=== PATIENT | male | born 1960 | race Caucasian/White ===

== ENCOUNTER 2021-03-26 01:48 | Inpatient (IN) | payer MEDICAID ==
[~2021-03-26] VITALS: Ht 177.8 cm; Wt 88.5 kg
[2021-03-26] MEDS ORDERED: ONDANSETRON 4 MG/2 ML VIAL IV ONE ×2 (02:15→04:30)
[2021-03-26] MEDS ORDERED: IV NORMAL SALINE 1000 ML BAG IV ONE (02:15)
[2021-03-26] MEDS ORDERED: HYDROMORPHONE 1 MG/1 ML DISP.SYRIN IV ONE ×2 (02:15→06:00)
[2021-03-26] MEDS ORDERED: PANTOPRAZOLE SODIUM 40 MG VIAL IV ONE (02:15)
[2021-03-26] MEDS ORDERED: PANTOPRAZOLE SODIUM 40 MG VIAL ONE (02:52)
[2021-03-26] MEDS ORDERED: HYDROMORPHONE 1 MG/1 ML DISP.SYRIN ONE ×2 (02:52→06:18)
[2021-03-26] MEDS ORDERED: ONDANSETRON 4 MG/2 ML VIAL ONE ×2 (02:52→04:38)
[2021-03-26 03:20] LABS: HEMATOCRIT 29.2 % (36.7-47.1); MEAN CORPUSCULAR HEMOGLOBIN 16.4 uug (23.8-33.4); MEAN CORPUSCULAR VOLUME 55.8 fL (73.0-96.2); PLATELET COUNT (AUTO) 753 K/uL (152-348)
[2021-03-26] MEDS ORDERED: SWABABLE VALVE TRANSFER SET EA MC ONE (03:34)
[2021-03-26] MEDS ORDERED: IOHEXOL 300MG/ML 100 ML INFUS..BTL ONE (03:34)
[2021-03-26] MEDS ORDERED: IV NORMAL SALINE 250 ML IV ONE (03:34)
[2021-03-26 04:02] LABS: CREATININE 0.9 mg/dL (0.6-1.3); POTASSIUM 3.1 mmol/L (3.5-5.1)
[2021-03-26 04:09] LABS: BILIRUBIN,DIRECT 0.1 mg/dL (0.0-0.2); BILIRUBIN,TOTAL 0.6 mg/dL (0.2-1.0); TOTAL PROTEIN, SERUM 8.1 g/dL (6.4-8.2)
--- NOTE | 2021-03-26 04:10 | NUR ---
Pt to CT
--- NOTE | 2021-03-26 04:30 | NUR ---
Pt back from CT
--- NOTE | 2021-03-26 05:20 | NUR ---
Called [facility] to page Dr. Leger.
--- NOTE | 2021-03-26 05:24 | NUR ---
Dr. Raza on Panel call with Dr. Leger
--- NOTE | 2021-03-26 05:27 | NUR ---
Called [facility] for reading of CT abdomen/pelvis
[2021-03-26 05:28] LABS: *BILIRUBIN,URIN NEGATIVE (NEGATIVE); *CLARITY,URINE CLEAR (CLEAR); *COLOR,URINE YELLOW (YELLOW); *KETONES,URINE TRACE (NEGATIVE); *UROBILINOGEN,URINE 0.2 E.U./dl (NORMAL); LEUKOCYTE ESTERASE ,URINE NEGATIVE (NEGATIVE); NITRITE, URINE NEGATIVE (NEGATIVE); PH,URINE 5.5 (5.0-8.0); UGLUCOSE NEGATIVE (NEGATIVE)
[2021-03-26] MEDS ORDERED: IV NS 1000 ML 1,000 ML IV SCH (05:30)
[2021-03-26] MEDS ORDERED: ACETAMINOPHEN 325 MG TABLET PO PRN (05:30)
[2021-03-26] MEDS ORDERED: LABETALOL HCL 100 MG/20 ML VIAL IV PRN (05:30)
[2021-03-26] MEDS ORDERED: hydrALAZINE HCL 20 MG/1 ML VIAL IV PRN (05:30)
--- NOTE | 2021-03-26 05:36 | NUR ---
Dr Raza spoke to Dr Hutchison for GI consult.
--- NOTE | 2021-03-26 05:39 | NUR ---
Dr. Raza talking to Dr. Van for GI consult
--- NOTE | 2021-03-26 05:43 | NUR ---
Dr Hutchison into eval patient.
[2021-03-26] MEDS ORDERED: METOCLOPRAMIDE HCL 10 MG/2 ML VIAL IV ONE (06:00)
[2021-03-26] MEDS ORDERED: METOCLOPRAMIDE HCL 10 MG/2 ML VIAL ONE (06:18)
[2021-03-26 06:27] VITALS: BP 157/78
--- NOTE | 2021-03-26 06:30 | NUR ---
Received a 60 yr old with admitting diagnosis of large bowel obstruction. VSS BP 157/78 HR 84 Resp 18 Temp 98.9 97% on RA. Denies any pain nor any discomfort at this time.
[2021-03-26 06:33] LABS: *BLOOD, URINE TRACE (NEGATIVE)
[2021-03-26 06:34] LABS: BACTERIA,URINE NONE SEEN /HPF (NONE SEEN); RBC,URINE 0-3 /HPF (0-3); SQUAMOUS EPITHELIAL CELL,UR FEW /HPF (NONE SEEN); WBC,URINE 0-3 /HPF (0-3)
[2021-03-26 07:18] LABS: IRON, SERUM 13 ug/dL (50-175)
[2021-03-26 07:31] LABS: FERRITIN 4 ng/mL (26-388)
[2021-03-26] MEDS: POTASSIUM CHLORIDE 50 ML IV SCH ×4 (10:03→13:31)
[2021-03-26] MEDS: MORPHINE SULFATE 2 MG/1 ML DISP.SYRIN IV PRN ×3 (10:04→23:55)
[2021-03-26] MEDS: ONDANSETRON 4 MG/2 ML VIAL IV PRN ×3 (10:04→23:54)
[2021-03-26 11:42] VITALS: BP 130/66
--- NOTE | 2021-03-26 13:52 | NUR ---
rx# [id number] morphine 2mg administered via iv, tolerated well. rr 20
[2021-03-26] MEDS: PIPERACILLIN SODIUM/TAZOBACTAM 3.375 G in IV DEXTROSE 5% 100 ML IV SCH ×2 (13:58→21:51)
[2021-03-26] MEDS ORDERED: PIPERACILLIN SODIUM/TAZOBACTAM 3.375 G in IV DEXTROSE 5% 50 ML IV SCH (14:00)
[2021-03-26] MEDS: POTASSIUM CHLORIDE 20 MEQ in IV D5 1/2 NS 1000 ML 1,000 ML IV PRN (14:05)
[2021-03-26 16:12] VITALS: BP 125/71
--- NOTE | 2021-03-26 16:48 | NUR ---
received call from Dr. Hutchison asking if patient was scheduled for a colonoscopy, informed Dr. Hutchison that there isn't a colonoscopy scheduled for tomorrow
--- NOTE | 2021-03-26 19:30 | NUR ---
Received pt in bed resting, AO x 4, on room air saturating at 99%, NPO, IV intact and patent with IV hydration running. No signs of acute distress noted at this time. Safety measures initiated, call lights within reach.
[2021-03-26 20:36] VITALS: BP 139/62
[2021-03-27] MEDS: POTASSIUM CHLORIDE 20 MEQ in IV D5 1/2 NS 1000 ML 1,000 ML IV PRN ×2 (02:57→22:00)
[2021-03-27 04:40] VITALS: BP 123/61
[2021-03-27] MEDS: PIPERACILLIN SODIUM/TAZOBACTAM 3.375 G in IV DEXTROSE 5% 100 ML IV SCH ×3 (05:11→22:01)
[2021-03-27] MEDS: ONDANSETRON 4 MG/2 ML VIAL IV PRN ×3 (06:11→22:03)
--- NOTE | 2021-03-27 06:35 | NUR ---
Patient slept intermittently throughout the night, AO x 4, room air saturating at 99%, IV intact and patent, ATB and IV hydration tolerating well. NPO maintained. Vital signs WNL. Zofran given, effective for nauseousness. Call lights within reach, safety measures maintained, will endorse to am shift.
[2021-03-27 07:16] LABS: HEMATOCRIT 27.6 % (36.7-47.1); MEAN CORPUSCULAR HEMOGLOBIN 16.4 uug (23.8-33.4); MEAN CORPUSCULAR VOLUME 56.1 fL (73.0-96.2); PLATELET COUNT (AUTO) 664 K/uL (152-348)
[2021-03-27 07:20] LABS: BILIRUBIN,TOTAL 0.4 mg/dL (0.2-1.0); CREATININE 0.8 mg/dL (0.6-1.3); PHOSPHOROUS 3.7 mg/dL (2.5-4.9)
--- NOTE | 2021-03-27 07:54 | NUR ---
received awake in bed. denies sob or pain. iv hydration ongoing tolerated. comfortable. call light in reach. safety precautions in place.
[2021-03-27 08:00] VITALS: BP 140/65
[2021-03-27] MEDS: PANTOPRAZOLE SODIUM 40 MG VIAL IV SCH (08:30)
[2021-03-27] MEDS ORDERED: POTASSIUM CHLORIDE 20 MEQ TAB.PRT.SR PO ONE (09:15)
--- NOTE | 2021-03-27 10:11 | NUR ---
Per Dr. jaime garcia to give K-dur with water.
[2021-03-27 12:00] VITALS: BP 136/57
--- NOTE | 2021-03-27 13:44 | NUR ---
received order from dr. bocanegra to do tap water enema tomorrow 7am, consent for colonoscopy order and keep pt npo noted and carried. Addendum: 03/27/21 at 1350 by LATHA DALLAS RN also per dr. bocanegra, pt needs to be transferred to higher level of care d/t unable to put a colonic stent here at [facility]. informed dr. sandoval and rifle case repairer naun.
--- NOTE | 2021-03-27 13:54 | NUR ---
spoke with luis a at radiology and informed xr gastrografin if can be done today. he will call off site radiologist and let them know.
[2021-03-27] MEDS ORDERED: HYDROMORPHONE 1 MG/1 ML DISP.SYRIN IV PRN (14:15)
--- NOTE | 2021-03-27 14:36 | NUR ---
spoke with dr. bocanegra and he revised order for sigmoidoscopy instead of colonoscopy and to go ahead with enema. per house nurse farzad henao will be picked up at 7am for procedure. will endorse accordingly.
[2021-03-27 15:15] LABS: THYROID STIMULATING HORMONE 0.706 mIU/mL (0.358-3.740)
[2021-03-27 16:00] VITALS: BP 141/61
--- NOTE | 2021-03-27 17:13 | NUR ---
per dr. jaime garcia to give 1 hr early per patient's request. Addendum: 03/27/21 at 1857 by LATHA DALLAS RN re: dilaudid 0.5mg prn
[2021-03-27] MEDS: HYDROMORPHONE 1 MG/1 ML DISP.SYRIN IV PRN ×2 (18:07→22:01)
[2021-03-27] MEDS: SOD FERRIC GLUC COMPLX/SUCROSE 125 MG in IV NORMAL SALINE 100 ML IV SCH (18:11)
--- NOTE | 2021-03-27 18:57 | NUR ---
pt in bed awake watching tv. pain relieved by dilaudid. no resp distress. passing gas and burping but no bm this shift. no vomiting. needs attended. safety measures kept. call light in reach.
[2021-03-27 20:00] VITALS: BP 154/56
[2021-03-28] MEDS ORDERED: CEFAZOLIN 1 G in IV DEXTROSE 5% 50 ML IV SCH (01:00)
[2021-03-28] MEDS: HYDROMORPHONE 1 MG/1 ML DISP.SYRIN IV PRN ×3 (02:39→21:45)
[2021-03-28] MEDS: ONDANSETRON 4 MG/2 ML VIAL IV PRN ×3 (02:41→10:59)
[2021-03-28] MEDS ORDERED: HYDROMORPHONE 1 MG/1 ML DISP.SYRIN IV ONE (03:45)
[2021-03-28] MEDS ORDERED: ONDANSETRON 4 MG/2 ML VIAL IV ONE ×2 (03:45→19:07)
[2021-03-28 04:00] VITALS: BP 157/66
--- NOTE | 2021-03-28 05:52 | NUR ---
Slept throughout the night. Tap water enema done per Dr. Van's orders. Pt c/o severe abd pain 10/10 and nausea during enema and stopped at that time. One time orders received for another dose of Dilaudid and Zofran to help with discomfort. After several minutes, pt states that he feels better. Pt refused to let this nurse continue with enema even after pain subsided. Pt NPO. IV site intact. Scheduled for sigmoidoscopy today.
[2021-03-28] MEDS: PIPERACILLIN SODIUM/TAZOBACTAM 3.375 G in IV DEXTROSE 5% 100 ML IV SCH ×2 (06:17→13:14)
[2021-03-28 06:36] LABS: HEMATOCRIT 26.3 % (36.7-47.1); MEAN CORPUSCULAR HEMOGLOBIN 16.6 uug (23.8-33.4); MEAN CORPUSCULAR VOLUME 56.6 fL (73.0-96.2); PLATELET COUNT (AUTO) 661 K/uL (152-348)
[2021-03-28 07:02] LABS: NEUTROPHILS % (MANUAL) 0 % (42-75)
[2021-03-28] MEDS ORDERED: ALBUTEROL SULFATE 8 GM HFA.AER.AD ONE (07:31)
--- NOTE | 2021-03-28 07:36 | NUR ---
per rn endorsement pt picked up at 7am for scheduled sigmoidoscopy.
[2021-03-28] MEDS ORDERED: HYDROMORPHONE 1 MG/1 ML DISP.SYRIN ONE (08:34)
[2021-03-28 09:00] VITALS: BP 133/75
--- NOTE | 2021-03-28 09:05 | NUR ---
came back from surgery report given by javid madison. pt has colon obstruction with sigmoid mass biopsy done. pt is alert oriented x4 able to make needs known. denies pain or sob at this time. resumes iv medications. vs: 98 133/75 82 97% on room air. dr. obcanegra with order to resume medications noted.
[2021-03-28] MEDS: PANTOPRAZOLE SODIUM 40 MG VIAL IV SCH (09:07)
[2021-03-28] MEDS: POTASSIUM CHLORIDE 20 MEQ in IV D5 1/2 NS 1000 ML 1,000 ML IV PRN (09:17)
--- NOTE | 2021-03-28 10:30 | NUR ---
Received call from Dr. Hutchison and was informed pt will have partial colon resection w/ temporary colostomy around 5pm today. Dr. Hutchison was transferred to the patient's room to talk with him. After speaking with MD, pt stated he wants to talks to MD in person and has more questions. Pt refused procedure later and wants to wait for tomorrow. Dr Hutchison is made aware.
--- NOTE | 2021-03-28 11:34 | NUR ---
Dr. Hutchison with order to start pt on clear liquids noted and carried. patient made aware.
[2021-03-28 11:48] VITALS: BP 134/73
--- NOTE | 2021-03-28 12:53 | NUR ---
Dr. Hutchison in to see the patient, pt agreed for procedure consent verified.
--- NOTE | 2021-03-28 13:55 | NUR ---
patient c/o nausea. iv zofran not due yet. informed dr. sandoval with order for reglan 10mg iv q 8hr prn noted and carried. pt aware.
[2021-03-28] MEDS ORDERED: METOCLOPRAMIDE HCL 10 MG/2 ML VIAL IV PRN (14:00)
[2021-03-28] MEDS: SOD FERRIC GLUC COMPLX/SUCROSE 125 MG in IV NORMAL SALINE 100 ML IV SCH (14:35)
[2021-03-28 15:50] VITALS: BP 142/73
[2021-03-28] MEDS ORDERED: MIDAZOLAM HCL 2 MG/2 ML VIAL ONE (16:30)
[2021-03-28] MEDS ORDERED: METRONIDAZOLE 500 MG/NS 100ML 100 ML IV ONE (16:30)
[2021-03-28] MEDS ORDERED: HYDROMORPHONE 2 MG/1 ML DISP.SYRIN ONE (16:31)
[2021-03-28] MEDS ORDERED: ROCURONIUM BROMIDE 50 MG/5 ML VIAL ONE (16:31)
[2021-03-28] MEDS ORDERED: FENTANYL CITRATE 250 MCG/5 ML AMPUL ONE (16:31)
--- NOTE | 2021-03-28 16:48 | NUR ---
picked up by 2 OR nurses for scheduled procedure. no acute distress
[2021-03-28] MEDS ORDERED: GLYCOPYRROLATE 0.2 MG/ML VIAL IJ ONE (19:07)
[2021-03-28] MEDS ORDERED: PROPOFOL 200 MG/20 ML BOTTLE IV ONE (19:07)
[2021-03-28] MEDS ORDERED: METOCLOPRAMIDE HCL 10 MG/2 ML VIAL IV ONE (19:07)
[2021-03-28] MEDS ORDERED: CEFAZOLIN 1 G VIAL IM ONE (19:07)
[2021-03-28] MEDS ORDERED: NEOSTIGMINE METHYLSULFATE 10 MG/10 ML VIAL IM ONE (19:07)
[2021-03-28] MEDS ORDERED: LIDOCAINE-MPF 2% 5 ML VIAL IJ ONE (19:07)
[2021-03-28] MEDS ORDERED: FENTANYL CITRATE 100 MCG/2 ML AMPUL ONE (19:35)
[2021-03-28] MEDS ORDERED: IV D5W-0.45% NS +20 KCL 1,000 ML IV ONE (20:07)
[2021-03-28 21:00] VITALS: BP 126/70
[2021-03-29] MEDS ORDERED: METOCLOPRAMIDE HCL 10 MG/2 ML VIAL IV PRN
[2021-03-29] MEDS: POTASSIUM CHLORIDE 20 MEQ in IV D5 1/2 NS 1000 ML 1,000 ML IV PRN ×3 (00:05→22:34)
[2021-03-29] MEDS: HYDROMORPHONE 1 MG/1 ML DISP.SYRIN IV PRN ×4 (00:15→09:02)
[2021-03-29] MEDS: METRONIDAZOLE 500 MG/NS 100ML 100 ML IV SCH ×2 (01:02→10:42)
--- NOTE | 2021-03-29 01:20 | NUR ---
Received pt on bed transferred from OR by 2 OR nurses. Pt is alert and oriented x4, able to make needs known. Or room air and with NGT on R nare connected to low intermittent suction. No respiratory distress noted. Midline on AMALIA infusing well with D5 1/2 NS + KCL 20 meq. No s/sx of infiltration on IV site. He is s/p partial colon resection w/ temp colostomy. Colostomy bag on LLQ, patent and intact noted with minimal brown liquid stool. Pt also has an surgical incision site on lower abdomen with юлия and covered with abd pads, dry and intact. He also has a DERREK drain on RLQ noted with 90cc sanguinous drainage from OR. FC draining well with clear yellowish urine. All needs attended. Call light placed within reach. Will continue to monitor.
[2021-03-29 04:25] VITALS: BP 123/78
[2021-03-29] MEDS: ONDANSETRON 4 MG/2 ML VIAL IV PRN ×4 (05:15→21:58)
--- NOTE | 2021-03-29 06:14 | NUR ---
Pt slept intermittently throughout the night. Dilaudid IV PRN given Q2H, last given at 0510H. On NGT to low intermittent suction, with 100 ml brownish output. Pt remains on NPO. Colostomy bag remains intact noted with minimal brownish liquid stool. DERREK drained with sanguineous output of 220 ml. All needs attended. Call light placed within reach. Frequent visual checks done. Will endorse to next shift for continuity of care.
[2021-03-29 06:47] LABS: HEMATOCRIT 25.1 % (36.7-47.1)
[2021-03-29 06:49] LABS: MEAN CORPUSCULAR HEMOGLOBIN 16.7 uug (23.8-33.4); MEAN CORPUSCULAR VOLUME 56.7 fL (73.0-96.2); PLATELET COUNT (AUTO) 566 K/uL (152-348)
[2021-03-29 07:13] LABS: BILIRUBIN,TOTAL 0.5 mg/dL (0.2-1.0); CREATININE 1.4 mg/dL (0.6-1.3); PHOSPHOROUS 4.6 mg/dL (2.5-4.9); TOTAL PROTEIN, SERUM 6.3 g/dL (6.4-8.2)
--- NOTE | 2021-03-29 07:40 | NUR ---
At 0700H, Steve from lab called and reported critical Hgb of 7.4. Cain Fair NP informed at 0710H - NNO at this time.
[2021-03-29] MEDS: PANTOPRAZOLE SODIUM 40 MG VIAL IV SCH (09:01)
--- NOTE | 2021-03-29 10:22 | NUR ---
WOUND CARE CONSULT: PT PRESENTS WITH DRY INTACT SURGICAL DRESSING TO ABDOMEN AND OSTOMY POUCH IS PATENT. PT REFUSED TO TURN FOR FULL SKIN ASSESSMENT AT THIS TIME. DISCUSSED SKIN PROTECTION WITH NURSING STAFF. MD IN AGREEMENT WITH PLAN OF CARE.
[2021-03-29] MEDS: HYDROMORPHONE 2 MG/1 ML DISP.SYRIN IV PRN ×5 (11:43→21:03)
[2021-03-29] MEDS: POTASSIUM CHLORIDE 50 ML IV SCH ×4 (11:43→14:54)
[2021-03-29 11:58] VITALS: BP 139/81
[2021-03-29 15:12] LABS: HEMATOCRIT 24.9 % (36.7-47.1); MEAN CORPUSCULAR HEMOGLOBIN 16.6 uug (23.8-33.4); MEAN CORPUSCULAR VOLUME 57.4 fL (73.0-96.2); PLATELET COUNT (AUTO) 609 K/uL (152-348)
[2021-03-29] MEDS: SOD FERRIC GLUC COMPLX/SUCROSE 125 MG in IV NORMAL SALINE 100 ML IV SCH (15:50)
[2021-03-29 15:54] LABS: EOSINOPHILS % (MANUAL) 1 % (0-8); LYMPHOCYTES % (MANUAL) 13 % (20-40); MONOCYTES % (MANUAL) 6 % (2-10); NEUTROPHILS % (MANUAL) 80 % (42-75)
[2021-03-29 16:07] VITALS: BP 123/75
--- NOTE | 2021-03-29 17:00 | NUR ---
Lab reported critical low hemoglobin at 7.2. Level was previously 7.4 0614 was notified.
[2021-03-29] MEDS: ENOXAPARIN SODIUM 40 MG/0.4 ML DISP.SYRIN SQ SCH (17:37)
[2021-03-29] MEDS ORDERED: SEVOFLURANE 250 ML BOTTLE IH ONE (19:07)
--- NOTE | 2021-03-29 19:29 | NUR ---
Pt is a/o x 4. Pt has continuous intermittent low suction on NG tube. Per Xray NG tube needs repositioning. Pt has a colostomy bag on lower left quadrant, minimal to no output throughout shift. Pt has DERREK drain on right lower quadrant, draining yellow/ red fluid. Castellanos catheter draining yellow urine. Pt refused to have PT today due to pain, will try again tomorrow for participation. Pt cooperative with care and medications, requests pain medication q2h and zofran q4h. Saturates 97% on room air. No signs of acute distress, comfort measures provided, call light within reach. Critical level of hgb was reported to MD, no intervention ordered. XRay result of NG tube needing repositioning reported to MD, Will endorse to restaurant shift supervisor.
--- NOTE | 2021-03-29 19:30 | NUR ---
Received pt lying in bed, AO x 4, on room air saturating at 98%. Pt on continuous intermittent low suction on NG tube, DERREK drainage and starkey catheter intact, AMALIA Midline intact and patent running D5 1/2 NS KCL at 125 mls. No signs of acute distress.
[2021-03-29 20:00] VITALS: BP 156/92
[2021-03-30] MEDS: HYDROMORPHONE 2 MG/1 ML DISP.SYRIN IV PRN ×10 (00:21→23:34)
--- NOTE | 2021-03-30 00:47 | NUR ---
NGT advanced 5 cm more; NGT now at 80 cm don from 75
[2021-03-30 04:00] VITALS: BP 140/80
[2021-03-30] MEDS: ONDANSETRON 4 MG/2 ML VIAL IV PRN ×3 (04:59→22:02)
--- NOTE | 2021-03-30 05:45 | NUR ---
Slept intermittently through the night, AO x4, on room air saturating at 98%, AMALIA midline intact and patent, tolerating IV fluids D5 1/2 NS KCL well, NG Tube advanced 5cm, on low intermittent suctioning, DERREK drainage emptied, colostomy changed, intact, no foul odor. Dilaudid IV PRN given Q2H. Zofran IV PRN given Q4H. Compliant with medication and care. No signs of acute distress. Call lights within reach, safety measures maintained. Will endorse to am shift.
[2021-03-30] MEDS: POTASSIUM CHLORIDE 20 MEQ in IV D5 1/2 NS 1000 ML 1,000 ML IV PRN ×3 (06:41→23:44)
[2021-03-30 06:44] LABS: CREATININE 0.9 mg/dL (0.6-1.3)
[2021-03-30] MEDS: PANTOPRAZOLE SODIUM 40 MG VIAL IV SCH (08:31)
[2021-03-30] MEDS: POTASSIUM CHLORIDE 50 ML IV SCH ×6 (10:58→16:01)
[2021-03-30 11:28] LABS: HEMATOCRIT 23.5 % (36.7-47.1); MEAN CORPUSCULAR HEMOGLOBIN 16.9 uug (23.8-33.4); MEAN CORPUSCULAR VOLUME 58.3 fL (73.0-96.2); PLATELET COUNT (AUTO) 573 K/uL (152-348)
[2021-03-30 11:32] VITALS: BP 140/76
[2021-03-30] MEDS: SOD FERRIC GLUC COMPLX/SUCROSE 125 MG in IV NORMAL SALINE 100 ML IV SCH (13:47)
[2021-03-30] MEDS ORDERED: POTASSIUM CHLORIDE 20 MEQ TAB.PRT.SR PO ONE (14:00)
--- NOTE | 2021-03-30 14:38 | NUR ---
Clinical Social Work Note SW consult was requested for mental health and placement resources since this man reported to business unit leader that he felt isolated and unable to manage at home. Patient is a 60 year old male who is alert and oriented x4. Patient presented with a calm mood and appropriate affect. SW inquired about patients reported mood of sadness and patient denied feeling any sadness. Patient stated that last time he felt sad or down was since he was born. SW offered patient mental health resources and patient accepted. Patient stated that he would like to start therapy for a recent family loss, but did not want to share more with SW. Patient inquired about housing options and SW explored options with patient. Patient stated that he did not want SNF placement or board and care. Patient denied SNF and Board and Care options. SW provided information about the following mental health services: [facility] [place] [address] [address], [address]nd [place] [address] , [facility] [address] [place] [address] , and [facility], [facility]. [address] [address] [place] [address] .
[2021-03-30 16:00] VITALS: BP 138/78
[2021-03-30] MEDS ORDERED: ACETAMINOPHEN 325 MG TABLET PO ONE (16:15)
[2021-03-30] MEDS ORDERED: diphenhydrAMINE 50 MG/1 ML VIAL IV ONE (16:20)
--- NOTE | 2021-03-30 16:53 | NUR ---
new order for rbc transfussion and type and cross, lab notified, blood not ready at this time.
--- NOTE | 2021-03-30 17:00 | NUR ---
CONSENT FOR BLOOD TRANSFUSION OBTAINED, PATIENT UNDERSTAND RISK AND BENEFITS. PATIENT WITH NO ACTIVE BLEEDING AT THIS TIME. V/S WNL. APPLIQUER ZIGZAG IN UNIT OBTAINING BLOOD FOR TYPE AND CROSS.
[2021-03-30] MEDS: ENOXAPARIN SODIUM 40 MG/0.4 ML DISP.SYRIN SQ SCH (18:32)
--- NOTE | 2021-03-30 19:30 | NUR ---
Received in bed, semi fowlers position. AAO x4, able to make needs known. C/O ABD pain 11/30, Dilaudid requested, will administer when due. Intermittent suction continued via NGT, tolerates well. DERREK drain to right ABD, intact with minimal red drainage. ostomy to left ABD intact and draining liquid stool, Stoma is pink and moist. Midline to left upper arm in place, patent and intact. Castellanos catheter in place, draining clear yellow/ ariadne urine. Needs assessed and attended. Safety measures initiated.
[2021-03-30 20:25] VITALS: BP 156/81
--- NOTE | 2021-03-30 21:00 | NUR ---
Spoke to blood blank, Lab, stated blood tech is available until 10pm and will be able to release blood then. Patient is no distress at this time.
--- NOTE | 2021-03-30 22:31 | NUR ---
Spoke to lab, States [facility] blood tech has arrived and is getting blood ready.
[2021-03-30 23:13] LABS: BAND % (MANUAL) 2 % (0-10); LYMPHOCYTES % (MANUAL) 5 % (20-40); MONOCYTES % (MANUAL) 8 % (2-10); NEUTROPHILS % (MANUAL) 85 % (42-75)
[2021-03-30] MEDS ORDERED: ACETAMINOPHEN 325 MG TABLET ONE (23:42)
[2021-03-30] MEDS ORDERED: diphenhydrAMINE 50 MG/1 ML VIAL ONE (23:43)
[2021-03-31] VITALS (12 sets, daily range): BP systolic 107–143; BP diastolic 60–77
--- NOTE | 2021-03-31 01:05 | NUR ---
Blood transfusion started, patient is stable.
[2021-03-31] MEDS: HYDROMORPHONE 2 MG/1 ML DISP.SYRIN IV PRN ×7 (02:45→22:46)
--- NOTE | 2021-03-31 06:31 | NUR ---
AAO x4, able to make needs known. C/O pain to ABD 8/10 this shift. Dilaudid IVPO 1.5mg provided and effective. C/o nausea one time, no emesis, Zofran IV effective. Still draining liquid stool to ostomy, pouch is intact, no leakage, stoma is moist and pink. DERREK drain in place to right ABD, with minimal drainage. NGT continues on intermittent low suction. Safety measures continued, Call light within reach.
[2021-03-31 06:36] LABS: HEMATOCRIT 23.4 % (36.7-47.1); MEAN CORPUSCULAR HEMOGLOBIN 18.5 uug (23.8-33.4); MEAN CORPUSCULAR VOLUME 60.4 fL (73.0-96.2); PLATELET COUNT (AUTO) 549 K/uL (152-348)
[2021-03-31 07:46] LABS: CREATININE 0.9 mg/dL (0.6-1.3); MAGNESIUM 2.3 mg/dL (1.8-2.4); PHOSPHOROUS 2.2 mg/dL (2.5-4.9)
[2021-03-31] MEDS: PANTOPRAZOLE SODIUM 40 MG VIAL IV SCH (08:15)
--- NOTE | 2021-03-31 10:17 | NUR ---
SEEN BY DR HEART REMOVED NGT, DERREK, FC AND SAID START CLEAR LIQUID THEN START PHYSICAL THERAPIST
[2021-03-31] MEDS: POTASSIUM CHLORIDE 50 ML IV SCH ×4 (11:06→15:00)
[2021-03-31] MEDS: POTASSIUM CHLORIDE 20 MEQ in IV D5 1/2 NS 1000 ML 1,000 ML IV PRN (11:19)
--- NOTE | 2021-03-31 12:24 | NUR ---
SEEN BY AISSATOU ROSAS SEE NOTES
[2021-03-31] MEDS: SOD FERRIC GLUC COMPLX/SUCROSE 125 MG in IV NORMAL SALINE 100 ML IV SCH (15:01)
[2021-03-31] MEDS ORDERED: NEUTRA PHOS PACKET PO ONE (15:45)
[2021-03-31] MEDS: ENOXAPARIN SODIUM 40 MG/0.4 ML DISP.SYRIN SQ SCH (17:15)
--- NOTE | 2021-03-31 18:04 | NUR ---
PATIENT TOLERATING CLEAR LIQUID DIET WELL NO N/V BUT HICCUPS. STARTED PT AND TOLERATED WELL. CONTINUE WITH PAIN MANAGEMENT
--- NOTE | 2021-03-31 19:30 | NUR ---
Received in bed, semi fowlers position. AAO x4, able to make needs known. C/O ABD pain 11/30, Dilaudid requested, will administer when due. on RA, no SOB. Colostomy to left ABD intact and draining liquid stool, Stoma is pink and moist. Midline to left upper arm in place, patent and intact. Needs assessed and attended. Safety measures initiated.
--- NOTE | 2021-03-31 22:00 | NUR ---
Patient request his home inhaler, ALbuterol 90mcg HFA inhaler as needed. Noted with minimal SOB at this time. Kole Greene MD made aware with new orders, noted and carried out.
[2021-03-31] MEDS ORDERED: ALBUTEROL SULFATE 2.5 MG/3 ML NEBU NEB PRN (23:45)
[2021-03-31] MEDS ORDERED: ALBUTEROL SULFATE 8 GM HFA.AER.AD IH PRN (23:45)
[2021-04-01] MEDS: POTASSIUM CHLORIDE 20 MEQ in IV D5 1/2 NS 1000 ML 1,000 ML IV PRN (00:09)
[2021-04-01] MEDS: HYDROMORPHONE 2 MG/1 ML DISP.SYRIN IV PRN ×3 (04:18→20:02)
[2021-04-01 04:30] VITALS: BP 143/76
--- NOTE | 2021-04-01 06:46 | NUR ---
Slept intermittently. Able to make needs known, is easily distractible due to ADHD. No further episodes of SOB noted. Colostomy is draining liquid stool with flatulence, ostomy ouch changed this shift. Incision to ABD clean and dry, [place] in place. Safety measures continued, call light within reach.
[2021-04-01 08:28] LABS: HEMATOCRIT 25.6 % (36.7-47.1); MEAN CORPUSCULAR HEMOGLOBIN 18.1 uug (23.8-33.4); PLATELET COUNT (AUTO) 617 K/uL (152-348)
[2021-04-01 08:53] LABS: CREATININE 0.8 mg/dL (0.6-1.3); PHOSPHOROUS 2.6 mg/dL (2.5-4.9); POTASSIUM 2.8 mmol/L (3.5-5.1)
[2021-04-01] MEDS: PANTOPRAZOLE SODIUM 40 MG VIAL IV SCH (09:58)
--- NOTE | 2021-04-01 10:18 | NUR ---
SEEN BY DR AISSATOU ROSAS AND DR HEART REVIEWED MEDS AND LABS WITH ORDERS. PLAN DC IN AM
[2021-04-01] MEDS ORDERED: POTASSIUM CHLORIDE 20 MEQ POWDER PACKET PO ONE ×2 (10:30→12:30)
[2021-04-01] MEDS: POTASSIUM CHLORIDE 50 ML IV SCH ×4 (10:44→14:23)
[2021-04-01 12:00] VITALS: BP 118/45
[2021-04-01 16:14] VITALS: BP 113/51
[2021-04-01] MEDS: ENOXAPARIN SODIUM 40 MG/0.4 ML DISP.SYRIN SQ SCH (16:58)
[2021-04-01] MEDS ORDERED: POTASSIUM CHLORIDE IV PRN (17:15)
[2021-04-01] MEDS ORDERED: LACTATED RINGERS IV PRN (17:15)
--- NOTE | 2021-04-01 17:18 | NUR ---
PLAN DC IN AM WITH HOME HEALTH FOLLOW-UP FOR COLOSTOMY TEACHING
[2021-04-01] MEDS: LACTATED RINGERS IV PRN (17:57)
[2021-04-01] MEDS: POTASSIUM CHLORIDE IV PRN (17:57)
--- NOTE | 2021-04-01 18:44 | NUR ---
PATIENT TOLERATING REGULAR DIET WELL NO ACUTE PAIN. COLOSTOMY FUNCTIONING WELL. AFEBRILE
[2021-04-01 21:03] VITALS: BP 139/68
--- NOTE | 2021-04-02 04:15 | NUR ---
Patient alert x4.on Ra. No acute distress noted. Compliant with medication. Reinforced teaching about colostomy care.Felice intact on abd,'l area.No active bleeding.Midline on left upper arm patent and intact with IVF running well.c/o abdominal pain medication with dilaudid with good result.All needs anticipated and met accordingly. Will endorse to oncoming shift.
[2021-04-02] MEDS: HYDROMORPHONE 2 MG/1 ML DISP.SYRIN IV PRN ×8 (04:20→23:04)
[2021-04-02 05:13] VITALS: BP 164/77
[2021-04-02] MEDS: PANTOPRAZOLE ORAL SUSPENSION 40 MG SUSPDR.PKT PO SCH (06:02)
[2021-04-02 07:03] LABS: HEMATOCRIT 23.3 % (36.7-47.1); MEAN CORPUSCULAR HEMOGLOBIN 19.1 uug (23.8-33.4); PLATELET COUNT (AUTO) 546 K/uL (152-348)
[2021-04-02 07:10] LABS: CREATININE 0.8 mg/dL (0.6-1.3); MAGNESIUM 1.8 mg/dL (1.8-2.4); PHOSPHOROUS 2.7 mg/dL (2.5-4.9)
[2021-04-02] MEDS ORDERED: PROPOFOL 200 MG/20 ML BOTTLE IV ONE (07:45)
[2021-04-02] MEDS ORDERED: SUCCINYLCHOLINE CHLORIDE 200 MG/10 ML VIAL IV ONE (07:45)
[2021-04-02] MEDS ORDERED: LIDOCAINE-MPF 2% 5 ML VIAL IJ ONE (07:45)
[2021-04-02 07:58] LABS: POTASSIUM 2.7 mmol/L (3.5-5.1)
[2021-04-02 08:00] VITALS: BP 123/61
[2021-04-02] MEDS: LACTATED RINGERS IV PRN (08:11)
[2021-04-02] MEDS: POTASSIUM CHLORIDE IV PRN (08:11)
[2021-04-02] MEDS ORDERED: POTASSIUM CHLORIDE 10 MEQ TAB.PRT.SR PO SCH (09:15)
[2021-04-02] MEDS: POTASSIUM CHLORIDE 50 ML IV SCH ×4 (10:50→14:23)
[2021-04-02 10:51] LABS: EOSINOPHILS % (MANUAL) 4 % (0-8); LYMPHOCYTES % (MANUAL) 19 % (20-40); MONOCYTES % (MANUAL) 8 % (2-10); NEUTROPHILS % (MANUAL) 69 % (42-75)
--- NOTE | 2021-04-02 11:13 | NUR ---
Pt is a/o x 4, some complaint of pain. no signs of acute distress. pt had critical lab values with hgb 7.2 and potassium 2.7. MD was notified. Pt currently receiving potassium IV supplementation as well as PO per MD order. Call light within reach, will continue to monitor pt.
[2021-04-02 11:52] VITALS: BP 105/56
--- NOTE | 2021-04-02 18:38 | NUR ---
Pt is a/o x 4, complains of some pain and requests medication q2h. Pt had bed bath today independently. Comfort measures provided, call light within reach. IV patent and running fluids. Will endorse to central supply clerk.
[2021-04-02 20:12] VITALS: BP 132/78
[2021-04-02] MEDS: ENOXAPARIN SODIUM 40 MG/0.4 ML DISP.SYRIN SQ SCH (20:43)
--- NOTE | 2021-04-02 22:52 | NUR ---
Received patient lying in bed. AOx4. On room air, No acute distress noted. IV on AMALIA running KCL 40meq at 75cc/hr. [place] intact on abdominal area. No active bleeding at this time. Colostomy pouch emptied every 2hours. Safety precaution and comfort measures initiated. Will continue to monitor.
--- NOTE | 2021-04-02 23:00 | NUR ---
Received call from industrial engineering technician, Duncan, requesting to do a CT scan w/o contrast. Advised patient accordingly the procedure however, patient refused and requested for it to be done in the morning.
[2021-04-03] MEDS: POTASSIUM CHLORIDE IV PRN ×2 (00:27→08:57)
[2021-04-03] MEDS: LACTATED RINGERS IV PRN ×2 (00:27→08:57)
[2021-04-03] MEDS: HYDROMORPHONE 2 MG/1 ML DISP.SYRIN IV PRN ×7 (04:04→21:57)
[2021-04-03 04:12] VITALS: BP 126/67
[2021-04-03] MEDS: PANTOPRAZOLE ORAL SUSPENSION 40 MG SUSPDR.PKT PO SCH (06:00)
--- NOTE | 2021-04-03 06:28 | NUR ---
Patient slept intermittently through the night, AAOX4. with frequent complaints of moderate to severe abdominal pain, appropriate pain medication was given as ordered. Colostomy pouch was noted to be leaking. Stoma was cleansed and colostomy pouch was changed. Abdominal юлия were visibly soiled, dressing was removed, site was cleansed and gauze was reapplied. All other needs were attended to and met. Safety precautions and comfort measures were maintained. Will endorse to day shift.
[2021-04-03 07:04] LABS: CREATININE 0.8 mg/dL (0.6-1.3); POTASSIUM 3.2 mmol/L (3.5-5.1)
--- NOTE | 2021-04-03 07:30 | NUR ---
Received patient in bed alert and oriented times 4. No sign of distress noted at this time. Safety measures are in place. Will continue to monitor.
[2021-04-03] MEDS ORDERED: POTASSIUM CHLORIDE 20 MEQ TAB.PRT.SR PO ONE (08:00)
[2021-04-03] MEDS ORDERED: ONDA4VIA23 IV (08:06)
[2021-04-03] MEDS ORDERED: LOPE2CAP40 PO (08:06)
[2021-04-03] MEDS ORDERED: POTA20PA40 PO (08:06)
[2021-04-03] MEDS ORDERED: PANT40SU2 PO (08:06)
[2021-04-03 11:11] VITALS: BP_SYST 111; BP_SYST 140; BP_DIAS 66; BP_DIAS 77
[2021-04-03 15:22] VITALS: BP 148/74
--- NOTE | 2021-04-03 19:00 | NUR ---
Received patient sitting at the edge of the bed. AAOX4, able to make needs known. IVF on AMALIA midline infusing well. Abdominal dressing clean and intact. Colostomy care done. Patient was picked up by mold maintenance technician, Rene for CT.
--- NOTE | 2021-04-03 19:03 | NUR ---
Patient left resting in bed. Patient complains of pain, says he want the Dilaudid to stay ahead of the pain. Patient is stable. Colostomy bag emptied, all medications given as ordered. Safety precautions are in place. Will continue to monitor.
--- NOTE | 2021-04-03 19:30 | NUR ---
Patient back in unit from radiology.
[2021-04-03 20:12] VITALS: BP 112/62
[2021-04-03] MEDS: ENOXAPARIN SODIUM 40 MG/0.4 ML DISP.SYRIN SQ SCH (20:34)
[2021-04-04] MEDS: HYDROMORPHONE 2 MG/1 ML DISP.SYRIN IV PRN ×7 (00:10→20:54)
[2021-04-04] MEDS: POTASSIUM CHLORIDE IV PRN (00:10)
[2021-04-04] MEDS: LACTATED RINGERS IV PRN (00:10)
[2021-04-04 04:15] VITALS: BP 98/59
[2021-04-04] MEDS: PANTOPRAZOLE ORAL SUSPENSION 40 MG SUSPDR.PKT PO SCH (06:14)
--- NOTE | 2021-04-04 06:56 | NUR ---
Patient slept intermittently through the night, frequently complaining of having abdominal pain. Had temperature of 99.2, cooling measures were done and temperature is down to 98.6. to Pain medication was given as ordered. Patient denies SOB, chest pain or dizziness. IVF via AMALIA infusing well. Colostomy teaching and care done. All needs were attended to and met. Safety precautions and comfort measures were maintained. Call light button and frequent used items within reach. Will endorse to day shift.
[2021-04-04] MEDS ORDERED: POTASSIUM CHLORIDE 20 MEQ TAB.PRT.SR PO ONE (07:00)
--- NOTE | 2021-04-04 09:33 | NUR ---
RECEIVED PATIENT IN BED AWAKE ALERT AND ORIENTED C/O ABDOMINAL PAIN MEDICATED WITH DILAUDID ORDERED ON ROOM AIR WITH NO SHORTNESS OF BREATH ON IVF ORDERED WITH NO S/S OF INFILTERATION ON SITE MIDLINE IS INTACT ABD WITH DRESSING DRY AND INTACT COLOSTOMY WITH BAG INTACT CALL LIGHTS AND HIS PERSONAL BELONGINGS ARE WITHIN EASY REACH AT THIS TIME WILL CONTINUE TO OBSERVE.
[2021-04-04 11:14] VITALS: BP 152/81
[2021-04-04 15:46] VITALS: BP 143/75
--- NOTE | 2021-04-04 16:19 | NUR ---
PATIENT SEEN AND EXAMINED BY [facility] CABIN FURNISHINGS INSTALLER WITH NEW ORDERS AND NOTED.
[2021-04-04] MEDS: IV LACTATED RINGERS SOLUTION 1,000 ML IV PRN (16:49)
--- NOTE | 2021-04-04 17:41 | NUR ---
PATIENT CONTINUE TO REQUIRE PAIN MEDICATIONS GIVEN ORDERED PER HIS REQUEST IVF IN PROGRESS ORDERED WILL CONTINUE TO OBSERVE.
[2021-04-04 20:00] VITALS: BP 149/74
[2021-04-04] MEDS: ENOXAPARIN SODIUM 40 MG/0.4 ML DISP.SYRIN SQ SCH (20:28)
[2021-04-05] MEDS: HYDROMORPHONE 2 MG/1 ML DISP.SYRIN IV PRN ×8 (00:44→23:09)
[2021-04-05] MEDS: IV LACTATED RINGERS SOLUTION 1,000 ML IV PRN ×2 (03:18→17:37)
[2021-04-05 04:06] VITALS: BP 153/84
[2021-04-05] MEDS: PANTOPRAZOLE ORAL SUSPENSION 40 MG SUSPDR.PKT PO SCH (06:09)
[2021-04-05 06:43] LABS: HEMATOCRIT 25.7 % (36.7-47.1); MEAN CORPUSCULAR HEMOGLOBIN 19.4 uug (23.8-33.4); MEAN CORPUSCULAR VOLUME 63.3 fL (73.0-96.2); PLATELET COUNT (AUTO) 468 K/uL (152-348)
--- NOTE | 2021-04-05 06:47 | NUR ---
PATIENT IN BED AWAKE .SLEPT INTERMITTENTLY THROUGH OUT THE SHIFT.CONSTANT C/O ABDOMINAL PAIN EVERY 2-3 HRS MEDICATED WITH DILAUDID ORDERED. ABDOMINAL AREA WITH MERCED. DRESSING INTACT.CLEAN AND DRY.MIDLINE ON LEFT UPPER ARM PATENT AND INTACT.CONTINUE ON IVF ORDERED WITH NO S/S OF INFILTRATION.REFUSED MIDLINE DRESSING CHANGE AT THIS TIME. COLOSTOMY WITH BAG INTACT .ALL NEEDS ANTICIPATED AND MET ACCORDINGLY.
[2021-04-05] MEDS: POTASSIUM CHLORIDE 20 MEQ TAB.PRT.SR PO SCH (09:18)
[2021-04-05 11:30] LABS: *IMMUNOFIXATION RESULT UNREMARKABLE; *IMMUNOGLOBULIN G, SERUM 974; ALBUMIN 2.9; ALPHA-1-GLOBULIN 0.3; ALPHA-2-GLOBULIN 0.8; BETA GLOBULIN 1.1; GLOBULIN, TOTAL 3.3; IMMUNOGLOBULIN A, SERUM 326; IMMUNOGLOBULIN M, SERUM 81; M-SPIKE NOT OBSERVED
[2021-04-05 11:31] LABS: A/G RATIO 0.9
[2021-04-05 12:00] VITALS: BP 139/75
[2021-04-05] MEDS: METOPROLOL TARTRATE 25 MG TABLET PO SCH ×2 (12:15→20:55)
[2021-04-05 16:00] VITALS: BP 141/74
[2021-04-05 20:54] VITALS: BP 133/76
[2021-04-05] MEDS: ENOXAPARIN SODIUM 40 MG/0.4 ML DISP.SYRIN SQ SCH (22:24)
[2021-04-06] MEDS: HYDROMORPHONE 2 MG/1 ML DISP.SYRIN IV PRN ×7 (01:13→21:19)
[2021-04-06 04:46] VITALS: BP 131/71
--- NOTE | 2021-04-06 05:52 | NUR ---
Slept intermittently. AO x 4. On room air saturating at 97%. Per pt's request, Dilaudid 1.5 mg given routinely for pain. Colostomy pouch clean and changed. Midline incision site intact. Pt urinating well throughout the night. No signs of acute distress. Needs have been met. Call lights within reach, safety measures maintained. Will endorse to am shift.
[2021-04-06] MEDS: PANTOPRAZOLE ORAL SUSPENSION 40 MG SUSPDR.PKT PO SCH (06:11)
[2021-04-06] MEDS: POTASSIUM CHLORIDE 20 MEQ TAB.PRT.SR PO SCH (08:15)
[2021-04-06] MEDS: METOPROLOL TARTRATE 25 MG TABLET PO SCH ×2 (08:15→20:12)
[2021-04-06] MEDS: IV LACTATED RINGERS SOLUTION 1,000 ML IV PRN (08:16)
[2021-04-06 11:16] VITALS: BP 133/59
--- NOTE | 2021-04-06 14:25 | NUR ---
INFORMED DR HEART REGARDING THE NOTE HE HAS FOR SURGICAL STAPLE REMOVAL. PER MD, REMOVE SURGICAL STAPLE TODAY. WILL CONTINUE TO MONITOR.
[2021-04-06 16:00] VITALS: BP 133/75
[2021-04-06 16:58] LABS: CREATININE 0.8 mg/dL (0.6-1.3); POTASSIUM 4.3 mmol/L (3.5-5.1)
--- NOTE | 2021-04-06 18:07 | NUR ---
SURGICAL MERCED REMOVED AND REPLACED WITH STERI-STRIPS ORDERED. NO DRAINAGE IDENTIFIED. REDNESS AROUND THE AREA NOTED. NO DISTRESS OR OTHER CONCERN IDENTIFIED DURING THE SHIFT. ALL DUE MEDS GIVEN ORDERED. ALL NEEDS ATTENDED. ROUTINE MEDS GIVEN FOR PAIN. KEPT CALL LIGHT WITHIN REACH. FREQUENT VISUAL CHECKS DONE. WILL ENDORSE TO THE NEXT SHIFT FOR CONTINUITY OF CARE. Addendum: 04/06/21 at 1813 by SERA QUEZADA RN PATIENT TOLERATED THE MERCED REMOVAL WELL.
[2021-04-06 20:00] VITALS: BP 99/62
[2021-04-06] MEDS: ENOXAPARIN SODIUM 40 MG/0.4 ML DISP.SYRIN SQ SCH (20:18)
[2021-04-07] MEDS: HYDROMORPHONE 2 MG/1 ML DISP.SYRIN IV PRN ×6 (00:02→17:09)
[2021-04-07 04:00] VITALS: BP 122/69
[2021-04-07] MEDS: PANTOPRAZOLE ORAL SUSPENSION 40 MG SUSPDR.PKT PO SCH (06:11)
--- NOTE | 2021-04-07 06:43 | NUR ---
Patient awake continues to c/o abd'l pain. Dilaudid PRN given .Colostomy bag changed d/t leakage.Drained bag x3.Reinforced teaching regarding colostomy bag.Verbalized understanding. Abdominal area with steri strips intact clean and dry. All needs anticipated and met accordingly.
--- NOTE | 2021-04-07 07:30 | NUR ---
received patient laying in bed in no apparent distress. patient is alert and oriented x4, able to make needs known. patient is on r.a rr even and non-labored, 0 sob at this time. midline to right upper arm in place and patent. currently with colostomy in place and patent. patient is able to ambulate, gait is steady. reminded patient to use call light for assistance.
[2021-04-07] MEDS: POTASSIUM CHLORIDE 20 MEQ TAB.PRT.SR PO SCH (08:35)
[2021-04-07] MEDS: METOPROLOL TARTRATE 25 MG TABLET PO SCH (08:40)
--- NOTE | 2021-04-07 10:59 | NUR ---
PATIENT REQUESTING FOR ALL MEDICAL RECORD INFORMATION AUTHORIZATION FORM SIGNED AND FAXED TO [facility]. PATIENT REQUESTING TO SPEAK WITH RUTH PE TEACHER AWARE.
[2021-04-07 12:25] VITALS: BP 120/71
--- NOTE | 2021-04-07 15:45 | NUR ---
received call from case management patient to be discharged and picked up at 1730 and admitted to [facility], patient aware.
[2021-04-07] MEDS ORDERED: METO25TA6 PO (16:21)
[2021-04-07] MEDS ORDERED: DOCU-141 PO (16:21)
[2021-04-07] MEDS ORDERED: POTA10CA43 PO (16:21)
[2021-04-07] MEDS ORDERED: ALBU2.5V7 NEB (16:21)
[2021-04-07] MEDS ORDERED: HYDR-3980 PO (16:21)
[2021-04-07] MEDS ORDERED: MULT-594 PO (16:21)
[2021-04-07] MEDS ORDERED: PANT40SU2 PO (16:21)
[2021-04-07] MEDS ORDERED: POLY17PO4 PO (16:21)
--- NOTE | 2021-04-07 16:39 | NUR ---
called [facility] report given to aliya shaffer, all questions answered.
--- NOTE | 2021-04-07 16:44 | NUR ---
all discharge instructions given to patient. reminded to follow up with your primary healthcare provider. follow up with an oncologist. follow up with primary health care provider for vaccinations if needed. Take all medications as prescribed. Return to ER or call 911 if symptoms worsen. patient states understanding. belongings inventory completed. photos taken. all paperwork signed
--- NOTE | 2021-04-07 18:07 | NUR ---
[facility] pharmacy in unit, report given, all questions answer.
== END 2021-04-07 18:15 | DRG 231 ==
LOC: ER 02:00 → MEDSURG3 06:07
PROVIDERS: ADMIT Internal Medicine; ATTEND Internal Medicine
PROC: 0D1N0Z4 Bypass Sigmoid Colon to Cutaneous, Open Approach (ICD-10-PCS; principal; 2021-03-28)
PROC: 05H633Z Insertion of Infusion Device into Left Subclavian Vein, Percutaneous Approach (ICD-10-PCS; principal; 2021-03-28)
PROC: 0DBN0ZZ Excision of Sigmoid Colon, Open Approach (ICD-10-PCS; principal; 2021-03-28)
PROC: B547ZZA Ultrasonography of Left Subclavian Vein, Guidance (ICD-10-PCS; principal; 2021-03-28)
PROC: 0DBN8ZX Excision of Sigmoid Colon, Via Natural or Artificial Opening Endoscopic, Diagnostic (ICD-10-PCS; principal; 2021-03-28)
PROC: 30233N1 Transfusion of Nonautologous Red Blood Cells into Peripheral Vein, Percutaneous Approach (ICD-10-PCS; 2021-03-31)
DX: C19 Malignant neoplasm of rectosigmoid junction (principal); K56.691 Other complete intestinal obstruction; A04.9 Bacterial intestinal infection, unspecified; E87.1 Hypo-osmolality and hyponatremia; D50.9 Iron deficiency anemia, unspecified; E87.6 Hypokalemia; D75.838 Other thrombocytosis; J45.909 Unspecified asthma, uncomplicated; Z85.038 Personal history of other malignant neoplasm of large intestine; Z68.28 Body mass index [BMI] 28.0-28.9, adult; Z20.822 Contact with and (suspected) exposure to COVID-19; R73.9 Hyperglycemia, unspecified; F90.9 Attention-deficit hyperactivity disorder, unspecified type; R74.01 Elevation of levels of liver transaminase levels; D72.828 Other elevated white blood cell count; R19.5 Other fecal abnormalities
CPT/HCPCS: 36415; 70030-TC; 71045; 71250; 82378; 82747; 82784; 83550; 83690; 83735; 84100; 84153; 84155; 84165; 84443; 85014; 85025; 85730; 86334; 86850; 86900; 86901; 86920; 87040; 88342; 93005; 97161; A4217; A4649; A4663; C9113; G0378; J0330; J0690; J1170; J1200; J1650; J2250; J2270; J2405; J2543; J2765; J2916; J3010; J3480; J3490; J3535; J7030; J7050; J7060; J7120; P9016; Q9967